=== PATIENT | female | born 1990 | race Caucasian/White ===

== ENCOUNTER 2019-10-28 06:24 | Inpatient (IN) | payer MEDICAID ==
[2019-10-28] MEDS ORDERED: NORMAL SALINE 1000 ML 1,000 ML IV ONE ×3 (07:05→12:21)
[2019-10-28] MEDS ORDERED: ONDANSETRON HCL INJ/PF 4 MG/2 ML SDV IV ONE (07:29)
--- NOTE | 2019-10-28 07:37 | ER Document Report ---
ED General - General Chief Complaint: Flu Symptoms Stated Complaint: CHILLS,BODY ACHES,VOMITING Time Seen by Provider: 10/28/19 06:59 Primary Care Provider: GARTH MORIN MD [Primary Care Provider] - Follow up as needed TRAVEL OUTSIDE OF THE [place] IN LAST 30 DAYS: No - HPI Notes: Patient is a 29-year-old female who presents emergency department for evaluation. She states that her son had a similar illness this week. She states that she had a sore throat. It progressed to coughing, one episode of emesis. She had some shaking chills. She is also has some dysuria. At this point she states she does not have any pain. She admits to feeling anxious because she "does not like doctors." She states she is also had some palpitations but she denies any dayaim shortness of breath. No chest pain. She states that she has an IUD in place, has not menstruated in some time. - Related Data Allergies/Adverse Reactions: No Known Allergies Allergy (Unverified 05/19/14 04:22) Past Medical History - General Information source: Patient - Social History Smoking Status: Never Smoker Chew tobacco use (# tins/day): No Frequency of alcohol use: None Drug Abuse: None Family History: Reviewed & Not Pertinent Patient has suicidal ideation: No Patient has homicidal ideation: No Past Surgical History: Reports: Hx Adenoidectomy, Hx Tonsillectomy Review of Systems - Review of Systems Constitutional: See HPI EENT: See HPI Cardiovascular: See HPI Respiratory: See HPI Gastrointestinal: See HPI Genitourinary: See HPI Female Genitourinary: No symptoms reported Musculoskeletal: No symptoms reported Skin: No symptoms reported Neurological/Psychological: No symptoms reported Physical Exam - Vital signs Vitals: Temp Pulse Resp BP Pulse Ox 97.7 F 135 H 20 111/63 100 10/28/19 06:28 10/28/19 06:28 10/28/19 06:28 10/28/19 06:28 10/28/19 06:28 - Notes Notes: Vital signs reviewed, please refer to chart. Head is normocephalic, atraumatic. Pupils equal round, reactive to light. Oral mucosa is moist. Pharynx is mildly erythematous. Neck is supple without meningismus. Heart is mildly tachycardic with normal S1, S2. Lungs are clear to auscultation bilaterally. Abdomen is soft, nontender, normoactive bowel sounds throughout. Extremities without cyanosis, clubbing. Posterior calves are nontender. Peripheral pulses are equal. Skin is warm and dry. Patient is awake, alert, neurological exam is nonfocal. Course - Re-evaluation Re-evalutation: 10/28/19 07:39 Patient presents to the emergency department for evaluation. Because of her palpitations and tachycardia, EKG was ordered reflexively through triage. Patient had laboratory investigations ordered. I added influenza as well. She is given IV fluids, Zofran. We will continue to monitor. 10/28/19 11:23 Patient is found to have a UTI. I reevaluated the patient and she was tachycardic again, seems she had developed a fever in the meantime. She still does not have any significant flank pain or CVA tenderness. Cultures are pending. She is given Tylenol and Toradol. Given that this patient does not have all the signs present of pyelonephritis, nor does she have any significant flank pain or other comorbidities,my hope is to send the patient home on antibiotic therapy. Again we will continue to monitor for response to antipyretics and fluids. 10/28/19 12:50 Unfortunately, patient's temperature responded to antipyretics, but her heart rate did not. Her heart rate remains in the 120s, despite a temperature of 100.8. Her blood pressure became marginal despite her third L of fluid hanging. Lactate was ordered. I am concerned about the possibility of sepsis in this patient, despite a normal white count. I spoke with Dr. Do, he will admit the patient for further care. - Vital Signs Vital signs: Temp Pulse Resp BP Pulse Ox 100.8 F H 135 H 20 92/54 L 99 10/28/19 12:28 10/28/19 06:28 10/28/19 11:01 10/28/19 12:34 10/28/19 11:01 - Laboratory Result Diagrams: 10/28/19 07:05 10/28/19 07:05 Laboratory results interpreted by me: 10/28/19 10/28/19 07:05 10:04 Plt Count 108 L Lymph % (Auto) 6.2 L Absolute Lymphs (auto) 0.4 L Seg Neutrophils % 89.0 H Urine Nitrite POSITIVE H Urine Urobilinogen 2.0 H Ur Leukocyte Esterase TRACE H - EKG Interpretation by Me Additional EKG results interpreted by me: 10/28/19 12:53 Sinus tachycardia with a rate of 119 bpm. Normal axis and intervals. No acute ST changes concerning for ischemia or infarction. Discharge - Discharge Clinical Impression: UTI (urinary tract infection) Qualifiers: Urinary tract infection type: site unspecified Hematuria presence: without hematuria Qualified Code(s): N39.0 - Urinary tract infection, site not specified Sepsis Qualifiers: Sepsis acute organ dysfunction status: unspecified Clinical Impression: (Ruled Out): Sepsis after obstetrical procedure Condition: Stable Disposition: ADMITTED INPATIENT Admitting Provider: Hi (Hospitalist) Unit Admitted: IMCU Referrals: GARTH MORIN MD [Primary Care Provider] - Follow up as needed
[2019-10-28 07:51] LABS: ABSOLUTE EOSINOPHILS # (AUTO) 0.1 10^3/uL (0.0-0.6); ABSOLUTE LYMPHOCYTES (AUTO) 0.4 10^3/uL (0.5-4.7); ABSOLUTE MONOCYTES (AUTO) 0.3 10^3/uL (0.1-1.4); ABSOLUTE NEUT (AUTO) 6.4 10^3/uL (1.7-8.2); BASOPHILS % (AUTO) 0.2 % (0-2); EOSINOPHILS % (AUTO) 0.8 % (0-6); HEMATOCRIT 37.8 % (36.0-47.0); HEMOGLOBIN 13.2 g/dL (12.0-15.5); LYMPHOCYTES % (AUTO) 6.2 % (13-45); MEAN CORPUSCULAR HEMOGLOBIN 32.7 pg (27.0-33.4); MEAN CORPUSCULAR HGB CONC 34.9 g/dL (32.0-36.0); MEAN CORPUSCULAR VOLUME 94 fl (80-97); MONOCYTES % (AUTO) 3.8 % (3-13); PLATELET COUNT 108 10^3/uL (150-450); RED BLOOD COUNT 4.04 10^6/uL (3.72-5.28); RED CELL DISTRIBUTION WIDTH 12.3 % (11.5-14.0); TOTAL CELLS COUNTED % (AUTO) 100 %; WHITE BLOOD COUNT 7.2 10^3/uL (4.0-10.5)
[2019-10-28 07:56] LABS: ALBUMIN 3.9 g/dL (3.5-5.0); ALKALINE PHOSPHATASE 69 U/L (38-126); ANION GAP 9 (5-19); ASPARTATE AMINO TRANSFERASE 26 U/L (14-36); BILIRUBIN,TOTAL 0.4 mg/dL (0.2-1.3); BLOOD UREA NITROGEN 7 mg/dL (7-20); CALCIUM 8.7 mg/dL (8.4-10.2); CARBON DIOXIDE 28 mmol/L (22-30); CHLORIDE 101 mmol/L (98-107); GLUCOSE 98 mg/dL (75-110); POTASSIUM 3.9 mmol/L (3.6-5.0); TOTAL PROTEIN 6.4 g/dL (6.3-8.2)
[2019-10-28 08:49] LABS: A TYPE INFLUENZA AG NEGATIVE (NEGATIVE)
[2019-10-28 08:50] LABS: B INFLUENZA AG NEGATIVE (NEGATIVE)
[2019-10-28 10:25] LABS: APPEARANCE,URINE SLIGHTLY-CLOUDY; BILIRUBIN,URINE NEGATIVE (NEGATIVE); COLOR,URINE YELLOW; GLUCOSE, URINE NEGATIVE (NEGATIVE); KETONES,URINE NEGATIVE (NEGATIVE); LEUKOCYTE ESTERASE,URINE TRACE (NEGATIVE); NITRITE,URINE POSITIVE (NEGATIVE); PROTEIN,URINE NEGATIVE (NEGATIVE)
[2019-10-28 10:46] LABS: ADD MANUAL MICROSCOPIC YES
[2019-10-28 10:47] LABS: BACTERIA,URINE 4+ /HPF
[2019-10-28] MEDS ORDERED: CEFTRIAXONE 1 GM/D5W RTU 1 GM/50 ML RTUPB IV ONE (10:51)
[2019-10-28] MEDS ORDERED: KETOROLAC TROMETHAMINE INJ/PF 30 MG/1 ML SDV IV ONE (11:23)
[2019-10-28] MEDS ORDERED: ACETAMINOPHEN 325 MG TABLET PO ONE (11:23)
[2019-10-28] MEDS ORDERED: DEXTROSE 5%-NORMAL SALINE 1,000 ML IV ONE (14:17)
[2019-10-28] MEDS ORDERED: IPRATROPIUM/ALBUTEROL 0.5-2.5 MG/3 ML AMPUL NEB PRN (14:18)
[2019-10-28] MEDS ORDERED: ONDANSETRON HCL INJ/PF 4 MG/2 ML SDV IV PRN (14:18)
[2019-10-28] MEDS ORDERED: MAG HYDROX/AL HYDROX/SIMETH SUSP 30 ML UDCUP PO PRN (14:18)
[2019-10-28] MEDS ORDERED: TEMAZEPAM 7.5 MG CAPSULE PO PRN (14:18)
[2019-10-28] MEDS ORDERED: PROMETHAZINE HCL INJ 25 MG/1 ML VIAL IV PRN (14:18)
[2019-10-28] MEDS: NORMAL SALINE 1000 ML 1,000 ML IV PRN ×2 (14:33→21:01)
--- NOTE | 2019-10-28 14:52 | RADIOLOGY REPORT (SQ) ---
EXAM DESCRIPTION: CHEST SINGLE VIEW COMPLETED DATE/TIME: 10/28/2019 2:30 pm REASON FOR STUDY: Fever COMPARISON: None. EXAM PARAMETERS: NUMBER OF VIEWS: One view. TECHNIQUE: Single frontal radiographic view of the chest acquired. RADIATION DOSE: NA LIMITATIONS: None. FINDINGS: LUNGS AND PLEURA: No consolidation, pneumothorax pleural effusion. MEDIASTINUM AND HILAR STRUCTURES: No masses. Contour normal. HEART AND VASCULAR STRUCTURES: Heart normal in size. Normal vasculature. BONES: No acute findings. HARDWARE: None in the chest. IMPRESSION: NO ACUTE RADIOGRAPHIC FINDING IN THE CHEST. TECHNICAL DOCUMENTATION: JOB ID: [id number] [employer]- All Rights Reserved Reading location - IP/workstation name: [email or web address]
[2019-10-28 15:40] LABS: URINE BARBITURATES SCREEN NEGATIVE; URINE BENZODIAZEPINES SCREEN NEGATIVE; URINE MARIJUANA (THC) SCREEN NEGATIVE; URINE METHADONE SCREEN NEGATIVE; URINE PHENCYCLIDINE SCREEN NEGATIVE
[2019-10-28 15:49] LABS: URINE COCAINE SCREEN UNCONFIRMED POSITIVE
[2019-10-28] MEDS ORDERED: NALOXONE HCL INJ/PF 0.4 MG/1 ML SDV IV ONE (15:58)
[2019-10-28] MEDS ORDERED: HYDRALAZINE HCL INJ/PF 20 MG/1 ML SDV IV PRN (15:59)
[2019-10-28] MEDS ORDERED: LORAZEPAM INJ 2 MG/1 ML VIAL ONE (16:22)
[2019-10-28] MEDS ORDERED: DIAZEPAM INJ 10 MG/2 ML DISP.SYRIN IV ONE (16:46)
--- NOTE | 2019-10-28 16:50 | PDOC H&P ---
History of Present Illness Admission Date/PCP: 10/28/19 12:58 GARTH MORIN MD History of Present Illness: LOYD BOOTHE is a 29 year old female with no significant past medical history presenting to ED complaining of sore throat, coughing, one episode of emesis, shaking chills, dysuria, and feeling anxious accompanied with palpitations. Source of history is ED physicians note. In ED she was found to be febrile, with no apparent sign of infection except for positive UA. Was a started on IV ceftriaxone and hospital was consulted for admission. On my encounter patient is very somnolent but arousable, does not provide much history, falls back to sleep, when asked if she is doing okay stating that she is feeling fine, patient noted to be hypotensive even after receiving 4 L of IV boluses, on my second encounter patient is more arousable but still does not provide much history, when asked if she is abusing any recreational drugs she denies it. Apparently on UDS patient is positive for cocaine and opiates which explains her somnolence. Past Surgical History Past Surgical History: Reports: Adenoidectomy, Tonsillectomy Social History Smoking Status: Never Smoker Electronic Cigarette use?: No Family History Family History: Reviewed & Not Pertinent Parental Family History Reviewed: Yes Children Family History Reviewed: Yes Sibling(s) Family History Reviewed.: Yes Medication/Allergy Home Medications: No Home Medications 10/28/19 Allergies/Adverse Reactions: No Known Allergies Allergy (Unverified 05/19/14 04:22) Review of Systems ROS unobtainable: Due to mental status Physical Exam Vital Signs: Temp Pulse Resp BP Pulse Ox 98.6 F 135 H 20 99/59 L 99 10/28/19 15:23 10/28/19 06:28 10/28/19 15:01 10/28/19 15:00 10/28/19 15:01 Intake & Output 10/27/19 10/28/19 10/29/19 06:59 06:59 06:59 Intake Total 4000 Balance 4000 Weight 68.2 kg General appearance: PRESENT: no acute distress, well-developed, well-nourished, other - Somnolent but arousable. Head exam: PRESENT: atraumatic, normocephalic Respiratory exam: PRESENT: clear to auscultation tray. ABSENT: rales, rhonchi, wheezes Cardiovascular exam: PRESENT: RRR. ABSENT: diastolic murmur, rubs, systolic murmur GI/Abdominal exam: PRESENT: normal bowel sounds, soft. ABSENT: distended, guarding, mass, organolmegaly, rebound, tenderness Neurological exam: PRESENT: altered - Somnolent but arousable., oriented to person, oriented to place, CN II-XII grossly intact. ABSENT: motor sensory deficit Results Laboratory Results: 10/28/19 07:05 10/28/19 07:05 10/28/19 10/28/19 10/28/19 07:05 07:05 07:05 WBC 7.2 RBC 4.04 Hgb 13.2 Hct 37.8 MCV 94 MCH 32.7 MCHC 34.9 RDW 12.3 Plt Count 108 L Seg Neutrophils % 89.0 H Sodium 138.3 Potassium 3.9 Chloride 101 Carbon Dioxide 28 Anion Gap 9 BUN 7 Creatinine 0.55 Est GFR ( Amer) > 60 Glucose 98 Lactic Acid Calcium 8.7 Total Bilirubin 0.4 AST 26 Alkaline Phosphatase 69 Total Protein 6.4 Albumin 3.9 Serum HCG, Qual NEGATIVE Urine Color Urine Appearance Urine pH Ur Specific [place] Urine Protein Urine Glucose (UA) Urine Ketones Urine Blood Urine Nitrite Ur Leukocyte Esterase Ur Squamous Epith Cells 10/28/19 10/28/19 10:04 12:46 WBC RBC Hgb Hct MCV MCH MCHC RDW Plt Count Seg Neutrophils % Sodium Potassium Chloride Carbon Dioxide Anion Gap BUN Creatinine Est GFR ( Amer) Glucose Lactic Acid 1.0 Calcium Total Bilirubin AST Alkaline Phosphatase Total Protein Albumin Serum HCG, Qual Urine Color YELLOW Urine Appearance SLIGHTLY-CLOUDY Urine pH 5.0 Ur Specific [place] 1.020 Urine Protein NEGATIVE Urine Glucose (UA) NEGATIVE Urine Ketones NEGATIVE Urine Blood NEGATIVE Urine Nitrite POSITIVE H Ur Leukocyte Esterase TRACE H Ur Squamous Epith Cells MODERATE Impressions: Chest X-Ray 10/28/19 00:00 IMPRESSION: NO ACUTE RADIOGRAPHIC FINDING IN THE CHEST. Assessment and Plan - Diagnosis (1) Acute encephalopathy Is this a current diagnosis for this admission?: Yes Plan: Most likely due to drug abuse. UDS positive for cocaine and opiates. Admit to IMCU. Seizure, fall and aspiration precautions. Supportive measures. (2) Systemic inflammatory response syndrome Is this a current diagnosis for this admission?: Yes Plan: Noted to be febrile, hypotensive, with positive UA. No leukocytosis, lactic acid WNL. Likely due to underlying UTI. Continue aggressive volume resuscitation guided by volume status. Broad-spectrum empiric IV antibiotics. Blood and urine culture. (3) Cocaine abuse Is this a current diagnosis for this admission?: Yes Plan: Denies any recreational drug abuse. UDS positive for cocaine and opiates. Patient noted to be very tachycardic after transfer to [facility]. Avoid beta-blockers. PRN benzos. Continue volume resuscitation. Supportive measures. Implement fall, seizure and aspiration precautions. (4) Opioid abuse Is this a current diagnosis for this admission?: Yes Plan: Denies any recreational drug abuse. UDS positive for cocaine and opiates. Monitor for respiratory depression. Monitor for withdrawals. Supportive measures. Implement fall, seizure and aspiration precautions. (5) Hypotension Is this a current diagnosis for this admission?: Yes Plan: Likely due to underlying systemic inflammatory response syndrome. No leukocytosis. Lactic acid WNL. Continue volume resuscitation guided by volume status. Monitor vitals. (6) UTI (urinary tract infection) Qualifiers: Urinary tract infection type: site unspecified Hematuria presence: without hematuria Qualified Code(s): N39.0 - Urinary tract infection, site not specified Is this a current diagnosis for this admission?: Yes Plan: Likely due to gram-negative rods including E. coli. Empiric IV antibiotics. Follow-up urine culture.
[2019-10-28] MEDS ORDERED: LORAZEPAM INJ 2 MG/1 ML VIAL IV ONE (17:00)
[2019-10-28] MEDS ORDERED: INFLUENZA QUAD (6MOS+) 2019-20 VAC 0.5 ML SYR IM ONE (17:02)
[2019-10-28] MEDS: DOCUSATE SODIUM 100 MG/10 ML UDC PO SCH (17:20)
[2019-10-28] MEDS ORDERED: DIAZEPAM INJ 10 MG/2 ML DISP.SYRIN IV PRN (17:34)
[2019-10-28] MEDS ORDERED: METOPROLOL TARTRATE PF/INJ 5 MG/5 ML SDV IV PRN (19:31)
--- NOTE | 2019-10-28 20:31 | EKG REPORT ---
SEVERITY:- OTHERWISE NORMAL ECG - SINUS TACHYCARDIA : Confirmed by: Autumn Tsai MD 28-Oct-2019 20:30:19
[2019-10-28] MEDS: FAMOTIDINE 20 MG TABLET PO SCH (21:01)
[2019-10-29] MEDS: NORMAL SALINE 1000 ML 1,000 ML IV PRN ×3 (03:32→22:02)
[2019-10-29] MEDS: ACETAMINOPHEN 325 MG TABLET PO PRN ×3 (03:34→15:23)
[2019-10-29 06:51] LABS: ABSOLUTE LYMPHOCYTES (AUTO) 0.3 10^3/uL (0.5-4.7); ABSOLUTE MONOCYTES (AUTO) 0.2 10^3/uL (0.1-1.4); ABSOLUTE NEUT (AUTO) 2.8 10^3/uL (1.7-8.2); BASOPHILS % (AUTO) 0.1 % (0-2); EOSINOPHILS % (AUTO) 0.5 % (0-6); HEMATOCRIT 30.6 % (36.0-47.0); LYMPHOCYTES % (AUTO) 10.1 % (13-45); MEAN CORPUSCULAR HEMOGLOBIN 33.3 pg (27.0-33.4); MEAN CORPUSCULAR HGB CONC 35.8 g/dL (32.0-36.0); MEAN CORPUSCULAR VOLUME 93 fl (80-97); MONOCYTES % (AUTO) 6.8 % (3-13); RED BLOOD COUNT 3.29 10^6/uL (3.72-5.28); RED CELL DISTRIBUTION WIDTH 11.8 % (11.5-14.0); SEGMENTED NEUTROPHILS % (AUTO) 82.5 % (42-78); TOTAL CELLS COUNTED % (AUTO) 100 %; WHITE BLOOD COUNT 3.4 10^3/uL (4.0-10.5)
[2019-10-29 07:01] LABS: ALBUMIN 2.6 g/dL (3.5-5.0); ALKALINE PHOSPHATASE 44 U/L (38-126); ASPARTATE AMINO TRANSFERASE 35 U/L (14-36); BILIRUBIN,DIRECT 0.2 mg/dL (0.0-0.4); BILIRUBIN,TOTAL 1.1 mg/dL (0.2-1.3); BLOOD UREA NITROGEN 8 mg/dL (7-20); CALCIUM 7.7 mg/dL (8.4-10.2); GLUCOSE 111 mg/dL (75-110); POTASSIUM 3.9 mmol/L (3.6-5.0)
[2019-10-29 07:07] LABS: ANION GAP 5 (5-19); CARBON DIOXIDE 24 mmol/L (22-30); CHLORIDE 108 mmol/L (98-107)
[2019-10-29 07:33] LABS: PLATELET COUNT 68 10^3/uL (150-450)
[2019-10-29] MEDS: CEFTRIAXONE 1 GM/D5W RTU 1 GM/50 ML RTUPB IV SCH (09:09)
[2019-10-29] MEDS: FAMOTIDINE 20 MG TABLET PO SCH ×2 (09:09→22:02)
[2019-10-29] MEDS: DOCUSATE SODIUM 100 MG/10 ML UDC PO SCH ×2 (09:11→17:19)
[2019-10-29] MEDS ORDERED: ENOXAPARIN SODIUM INJ 40 MG/0.4 ML DISP.SYRIN SUBCUT SCH (10:00)
--- NOTE | 2019-10-29 13:16 | PDOC PROGRESS REPORT ---
Subjective Progress Note for:: 10/29/19 Subjective:: Patient's mentation has improved today. She is clearer and does not appear confused at this time. She continues to deny using cocaine despite having positive UDS. States that she uses Percocet and took some yesterday. Patient did tell staff that she snorted it. It is unclear if it could have been laced with something else. Patient did state that she received a Percocet from her father for back pain. She also states that she has been off Suboxone for about 1 week and was previously on Suboxone 8 mg tablets twice a day. Currently denies any headache. Reason For Visit: UTI, SIRS Physical Exam Vital Signs: Temp Pulse Resp BP Pulse Ox 97.9 F 96 18 100/67 99 10/29/19 11:16 10/29/19 11:16 10/29/19 11:16 10/29/19 11:16 10/29/19 11:16 Intake & Output 10/28/19 10/29/19 10/30/19 06:59 06:59 06:59 Intake Total 6548 917 Output Total 0 Balance 6548 917 Weight 68.2 kg 74.7 kg General appearance: PRESENT: no acute distress, cooperative Neck exam: ABSENT: JVD Respiratory exam: PRESENT: clear to auscultation tray, unlabored. ABSENT: tachypnea, wheezes Cardiovascular exam: PRESENT: RRR, +S1, +S2. ABSENT: tachycardia GI/Abdominal exam: PRESENT: normal bowel sounds, soft. ABSENT: rebound, rigid, tenderness Neurological exam: PRESENT: alert, awake, oriented to person, oriented to place, oriented to time, oriented to situation. ABSENT: CN II-XII grossly intact, mot or sensory deficit, aphasic Results Laboratory Results: 10/29/19 05:56 10/29/19 05:56 10/28/19 10/29/19 10/29/19 12:46 05:56 05:56 WBC 3.4 L RBC 3.29 L Hgb 11.0 L D Hct 30.6 L MCV 93 MCH 33.3 MCHC 35.8 RDW 11.8 Plt Count 68 L Seg Neutrophils % 82.5 H Sodium 136.8 L Potassium 3.9 Chloride 108 H Carbon Dioxide 24 Anion Gap 5 BUN 8 Creatinine 0.46 L Est GFR ( Amer) > 60 Glucose 111 H Lactic Acid 1.0 Calcium 7.7 L Magnesium 1.8 Total Bilirubin 1.1 AST 35 Alkaline Phosphatase 44 Total Protein 5.0 L Albumin 2.6 L Impressions: Chest X-Ray 10/28/19 00:00 IMPRESSION: NO ACUTE RADIOGRAPHIC FINDING IN THE CHEST. Assessment and Plan - Diagnosis (1) Acute encephalopathy Is this a current diagnosis for this admission?: Yes Plan: Most likely due to drug abuse. UDS positive for cocaine and opiates.patient denies any voluntary cocaine use. Mentation has improved today and she is no longer encephalopathic but does still seem a little drowsy We will continue to monitor. UTI is less likely the cause of her encephalopathy but we will treat Follow-up blood culture (2) Substance abuse Is this a current diagnosis for this admission?: Yes Plan: UDS positive for cocaine and opiates. Patient is on Suboxone but stopped 1 week ago. Questionable if could be having some withdrawal from Suboxone. Continue to monitor vital signs. (3) UTI (urinary tract infection) Qualifiers: Urinary tract infection type: site unspecified Hematuria presence: without hematuria Qualified Code(s): N39.0 - Urinary tract infection, site not specified Is this a current diagnosis for this admission?: Yes Plan: Continue ceftriaxone day 2. Urine culture growing gram-negative rods. (4) Sepsis Qualifiers: Sepsis acute organ dysfunction status: unspecified Is this a current diagnosis for this admission?: Yes Plan: Suspected sepsis secondary to UTI on admission. Febrile on admission. Sepsis syndrome seems to have improved at this time a BP stable. Follow-up blood cultures. (5) Sinus tachycardia Is this a current diagnosis for this admission?: Yes Plan: Possibly secondary to substance abuse. Currently improved and resolved at this time after receiving some Valium yesterday. - Time Time Spent with patient: 15-24 minutes
[2019-10-29] MEDS ORDERED: BENZOCAINE/MENTHOL SORE THROAT LOZENGE BUCCAL PRN (16:50)
[2019-10-29] MEDS ORDERED: IBUPROFEN 400 MG TABLET PO PRN ×2 (17:10→21:33)
[2019-10-29] MEDS ORDERED: IBUPROFEN 400 MG TABLET PO ONE (17:30)
[2019-10-29] MEDS ORDERED: TRAMADOL HCL 50 MG TABLET PO ONE (19:15)
[2019-10-29] MEDS: KETOROLAC TROMETHAMINE INJ/PF 30 MG/1 ML SDV IV PRN (22:02)
[2019-10-30] MEDS ORDERED: GUAIFENESIN/D-METHORPHAN (200-20 MG) SYRUP 10 ML PO PRN (02:43)
[2019-10-30] MEDS: NORMAL SALINE 1000 ML 1,000 ML IV PRN (04:57)
[2019-10-30] MEDS: KETOROLAC TROMETHAMINE INJ/PF 30 MG/1 ML SDV IV PRN (05:21)
[2019-10-30 05:23] LABS: ABSOLUTE EOSINOPHILS # (AUTO) 0.2 10^3/uL (0.0-0.6); ABSOLUTE LYMPHOCYTES (AUTO) 0.8 10^3/uL (0.5-4.7); ABSOLUTE MONOCYTES (AUTO) 0.3 10^3/uL (0.1-1.4); ABSOLUTE NEUT (AUTO) 3.1 10^3/uL (1.7-8.2); BASOPHILS % (AUTO) 0.2 % (0-2); EOSINOPHILS % (AUTO) 3.6 % (0-6); HEMATOCRIT 34.4 % (36.0-47.0); LYMPHOCYTES % (AUTO) 18.8 % (13-45); MEAN CORPUSCULAR HEMOGLOBIN 32.8 pg (27.0-33.4); MEAN CORPUSCULAR VOLUME 94 fl (80-97); MONOCYTES % (AUTO) 6.9 % (3-13); RED BLOOD COUNT 3.67 10^6/uL (3.72-5.28); RED CELL DISTRIBUTION WIDTH 12.3 % (11.5-14.0); SEGMENTED NEUTROPHILS % (AUTO) 70.5 % (42-78); TOTAL CELLS COUNTED % (AUTO) 100 %; WHITE BLOOD COUNT 4.3 10^3/uL (4.0-10.5)
[2019-10-30 05:28] LABS: ANION GAP 6 (5-19); BLOOD UREA NITROGEN 6 mg/dL (7-20); CALCIUM 7.8 mg/dL (8.4-10.2); CARBON DIOXIDE 22 mmol/L (22-30); CHLORIDE 114 mmol/L (98-107); GLUCOSE 88 mg/dL (75-110); PLATELET COUNT 65 10^3/uL (150-450); POTASSIUM 3.6 mmol/L (3.6-5.0)
[2019-10-30] MEDS: DOCUSATE SODIUM 100 MG/10 ML UDC PO SCH (09:55)
[2019-10-30] MEDS: FAMOTIDINE 20 MG TABLET PO SCH (09:59)
[2019-10-30] MEDS: CEFTRIAXONE 1 GM/D5W RTU 1 GM/50 ML RTUPB IV SCH (10:00)
--- NOTE | 2019-10-30 11:13 | PDOC DISCHARGE SUMMARY ---
Impression - Admit/DC Date/PCP Admission Date/Primary Care Provider: 10/28/19 12:58 GARTH MORIN MD Discharge Date: 10/30/19 - Discharge Diagnosis (1) Acute encephalopathy Is this a current diagnosis for this admission?: Yes (2) Substance abuse Is this a current diagnosis for this admission?: Yes (3) UTI (urinary tract infection) Is this a current diagnosis for this admission?: Yes (4) Sepsis Is this a current diagnosis for this admission?: Yes (5) Sinus tachycardia Is this a current diagnosis for this admission?: Yes - Assessment Summary: Patient was admitted to the hospital for acute metabolic encephalopathy. Urine drug screen was positive for cocaine and opiates. Patient also had urinalysis that was positive with urine culture growing over 100,000 cfu of E. coli. Of note on presentation patient was febrile and tachycardic. Patient's metabolic encephalopathy was suspected to be secondary to substance abuse or sepsis from urinary tract infection. Patient received IV fluids and her tachycardia subsequently resolved. She also received antibiotics with ceftriaxone. Patient has been afebrile for over 24 hours now and her mental status is completely back to normal. Her encephalopathy has resolved. Patient denied doing any cocaine though he was positive on her urine drug screen but did admit to crushing some Percocets the day before. Patient has been counseled against substance abuse. Patient has been discharged with Keflex for a few more days to complete treatment. Patient has been discharged in stable conditions. - Additional Information Discharge Diet: Regular Discharge Activity: Activity As Tolerated Referrals: GARTH MORIN MD [Primary Care Provider] - Follow up as needed Prescriptions: Cephalexin Monohydrate [Keflex 500 mg Capsule] 500 mg PO Q8 5 Days #15 capsule Home Medications: Cephalexin Monohydrate [Keflex 500 mg Capsule] 500 mg PO Q8 5 Days #15 capsule 10/30/19 History of Present Illiness History of Present Illness: LOYD BOOTHE is a 29 year old female with no significant past medical history presenting to ED complaining of sore throat, coughing, one episode of emesis, shaking chills, dysuria, and feeling anxious accompanied with palpitations. Source of history is ED physicians note. In ED she was found to be febrile, with no apparent sign of infection except for positive UA. Was a started on IV ceftriaxone and hospital was consulted for admission. On my encounter patient is very somnolent but arousable, does not provide much history, falls back to sleep, when asked if she is doing okay stating that she is feeling fine, patient noted to be hypotensive even after receiving 4 L of IV boluses, on my second encounter patient is more arousable but still does not provide much history, when asked if she is abusing any recreational drugs she denies it. Apparently on UDS patient is positive for cocaine and opiates which explains her somnolence. Physical Exam Vital Signs: Temp Pulse Resp BP Pulse Ox 97.8 F 100 16 107/65 95 10/30/19 07:24 10/30/19 11:02 10/30/19 11:02 10/30/19 07:24 10/30/19 11:02 Intake & Output 10/29/19 10/30/19 10/31/19 06:59 06:59 06:59 Intake Total 6548 4489 Output Total 0 Balance 6548 4489 Weight 74.7 kg 77.1 kg General appearance: PRESENT: no acute distress, cooperative Neck exam: ABSENT: JVD Respiratory exam: PRESENT: clear to auscultation tray Neurological exam: PRESENT: alert, awake, oriented to person, oriented to place, oriented to time, oriented to situation. ABSENT: ataxia, aphasic Psychiatric exam: ABSENT: agitated, anxious Results Laboratory Results: WBC 4.3 10^3/uL (4.0-10.5) 10/30/19 04:17 RBC 3.67 10^6/uL (3.72-5.28) L 10/30/19 04:17 Hgb 12.0 g/dL (12.0-15.5) 10/30/19 04:17 Hct 34.4 % (36.0-47.0) L 10/30/19 04:17 MCV 94 fl (80-97) 10/30/19 04:17 MCH 32.8 pg (27.0-33.4) 10/30/19 04:17 MCHC 35.0 g/dL (32.0-36.0) 10/30/19 04:17 RDW 12.3 % (11.5-14.0) 10/30/19 04:17 Plt Count 65 10^3/uL (150-450) L 10/30/19 04:17 Lymph % (Auto) 18.8 % (13-45) 10/30/19 04:17 [place] % (Auto) 6.9 % (3-13) 10/30/19 04:17 Eos % (Auto) 3.6 % (0-6) 10/30/19 04:17 Baso % (Auto) 0.2 % (0-2) 10/30/19 04:17 Absolute Neuts (auto) 3.1 10^3/uL (1.7-8.2) 10/30/19 04:17 Absolute Lymphs (auto) 0.8 10^3/uL (0.5-4.7) 10/30/19 04:17 Absolute Monos (auto) 0.3 10^3/uL (0.1-1.4) 10/30/19 04:17 Absolute Eos (auto) 0.2 10^3/uL (0.0-0.6) 10/30/19 04:17 Absolute Basos (auto) 0.0 10^3/uL (0.0-0.2) 10/30/19 04:17 Seg Neutrophils % 70.5 % (42-78) 10/30/19 04:17 Sodium 142.3 mmol/L (137-145) 10/30/19 04:17 Potassium 3.6 mmol/L (3.6-5.0) 10/30/19 04:17 Chloride 114 mmol/L (98-107) H 10/30/19 04:17 Carbon Dioxide 22 mmol/L (22-30) 10/30/19 04:17 Anion Gap 6 (5-19) 10/30/19 04:17 BUN 6 mg/dL (7-20) L 10/30/19 04:17 Creatinine 0.46 mg/dL (0.52-1.25) L 10/30/19 04:17 Est GFR ( Amer) > 60 (>60) 10/30/19 04:17 Est GFR (MDRD) Non-Af > 60 (>60) 10/30/19 04:17 Glucose 88 mg/dL (75-110) 10/30/19 04:17 Lactic Acid 1.0 mmol/L (0.7-2.1) 10/28/19 12:46 Calcium 7.8 mg/dL (8.4-10.2) L 10/30/19 04:17 Magnesium 1.8 mg/dL (1.6-2.3) 10/29/19 05:56 Total Bilirubin 1.1 mg/dL (0.2-1.3) 10/29/19 05:56 Direct Bilirubin 0.2 mg/dL (0.0-0.4) 10/29/19 05:56 Neonat Total Bilirubin Not Reportable 10/29/19 05:56 Neonat Direct Bilirubin Not Reportable 10/29/19 05:56 Neonat Indirect Bili Not Reportable 10/29/19 05:56 AST 35 U/L (14-36) 10/29/19 05:56 ALT 18 U/L (<35) 10/29/19 05:56 Alkaline Phosphatase 44 U/L (38-126) 10/29/19 05:56 Total Protein 5.0 g/dL (6.3-8.2) L 10/29/19 05:56 Albumin 2.6 g/dL (3.5-5.0) L 10/29/19 05:56 Serum HCG, Qual NEGATIVE (NEGATIVE) 10/28/19 07:05 Urine Color YELLOW 10/28/19 10:04 Urine Appearance SLIGHTLY-CLOUDY 10/28/19 10:04 Urine pH 5.0 (5.0-9.0) 10/28/19 10:04 Ur Specific [place] 1.020 10/28/19 10:04 Urine Protein NEGATIVE mg/dL (NEGATIVE) 10/28/19 10:04 Urine Glucose (UA) NEGATIVE mg/dL (NEGATIVE) 10/28/19 10:04 Urine Ketones NEGATIVE mg/dL (NEGATIVE) 10/28/19 10:04 Urine Blood NEGATIVE (NEGATIVE) 10/28/19 10:04 Urine Nitrite POSITIVE (NEGATIVE) H 10/28/19 10:04 Urine Bilirubin NEGATIVE (NEGATIVE) 10/28/19 10:04 Urine Urobilinogen 2.0 mg/dL (<2.0) H 10/28/19 10:04 Ur Leukocyte Esterase TRACE (NEGATIVE) H 10/28/19 10:04 Urine WBC 1-5 /HPF 10/28/19 10:04 Ur Squamous Epith Cells MODERATE /HPF 10/28/19 10:04 Urine Bacteria 4+ /HPF 10/28/19 10:04 Urine Mucus TRACE 10/28/19 10:04 Urine Ascorbic Acid NEGATIVE (NEGATIVE) 10/28/19 10:04 Urine Opiates Screen UNCONFIRMED POSITIVE 10/28/19 10:04 Urine Methadone Screen NEGATIVE 10/28/19 10:04 Ur Barbiturates Screen NEGATIVE 10/28/19 10:04 Ur Phencyclidine Scrn NEGATIVE 10/28/19 10:04 Ur Amphetamines Screen 10/28/19 10:04 U Benzodiazepines Scrn NEGATIVE 10/28/19 10:04 Urine Cocaine Screen UNCONFIRMED POSITIVE 10/28/19 10:04 U Marijuana (THC) Screen NEGATIVE 10/28/19 10:04 Influenza A (Rapid) NEGATIVE (NEGATIVE) 10/28/19 08:05 Influenza B (Rapid) NEGATIVE (NEGATIVE) 10/28/19 08:05 Impressions: Chest X-Ray 10/28/19 00:00 IMPRESSION: NO ACUTE RADIOGRAPHIC FINDING IN THE CHEST. Plan Time Spent: Less than 30 Minutes Stroke Is this a Stroke Patient?: No Acute Heart Failure - Is this a Heart Failure Patient?: No
[2019-10-30 11:18] VITALS: BP 95/62
== END 2019-10-30 12:37 | disposition home or self-care (01) | DRG 871 ==
LOC: ER 06:24 → EH 12:58 → 3W 16:11
PROVIDERS: ADMIT Internal Medicine; ATTEND Internal Medicine
DX: A41.9 Sepsis, unspecified organism (principal); G92 Toxic encephalopathy; N39.0 Urinary tract infection, site not specified; B96.20 Unspecified Escherichia coli [E. coli] as the cause of diseases classified elsewhere; F14.10 Cocaine abuse, uncomplicated; F11.10 Opioid abuse, uncomplicated; I95.9 Hypotension, unspecified
CPT/HCPCS: 36415; 51701; 71045; 80048; 80053; 80307; 81001; 83605; 83735; 84703; 85025; 87040; 87086; 87088; 87186; 87804; 93005; 93010; 96361; 96365; 96375; 99285; J0696; J1885; J2060; J2405; J3360; J3490; J7030; J7042